=== PATIENT | male | born 1945 | race Asian ===

== ENCOUNTER 2021-01-05 17:20 | Emergency (ER) | payer MEDICARE, OTHER ==
[~2021-01-05] VITALS: Ht 162.6 cm; Wt 65.8 kg
[2021-01-05] MEDS ORDERED: Cleocin HCl300 MG PO ×2 (19:19→19:48)
[2021-01-05] MEDS ORDERED: Norco 5-325 Ta1 EACH PO ×2 (19:19→19:48)
== END 2021-01-05 19:50 | disposition home or self-care (01) ==
LOC: ER 17:20
DX: S02.2XXA Fracture of nasal bones, initial encounter for closed fracture (principal); S02.401A Maxillary fracture, unspecified side, initial encounter for closed fracture; S01.511A Laceration without foreign body of lip, initial encounter; Z88.0 Allergy status to penicillin; Z88.6 Allergy status to analgesic agent; Z88.7 Allergy status to serum and vaccine; W01.198A Fall on same level from slipping, tripping and stumbling with subsequent striking against other object, initial encounter
CPT/HCPCS: 12011; 70450; 73130; 99284-25; A9270